=== PATIENT | female | born 1955 | race African-American/Black ===

== ENCOUNTER 2024-07-07 15:32 | Outpatient (REF) | payer MEDICAID, SELFPAY ==
[2024-07-07 18:03] LABS: Folate 18.8 ng/mL (> or = 4.0); Vitamin B12 506 pg/mL (200-900)
[2024-07-07 18:38] LABS: Anion Gap 7 (12-20); Blood Urea Nitrogen 18 mg/dL (9-16); Calcium 9.6 mg/dL (8.4-10.2); Carbon Dioxide 32 mmol/L (22-29); Chloride 107 mmol/L (96-108); Estimated Glomerular Filt Rate > 60; Glucose Random 103 mg/dL (60-115); Potassium 4.4 mmol/L (3.3-5.1); Sodium 142 mmol/L (135-145); TSH reflex Free T4 1.07 uIU/mL (0.32-4.0)
[2024-07-08 20:08] LABS: Homocysteine 8.2 umol/L (<10.4)
[2024-07-10 19:04] LABS: Methylmalonic Acid 290 nmol/L (69-390)
== END 2024-07-07 15:33 | disposition home or self-care (01) ==
LOC: HO.LAB 15:32
PROVIDERS: Visit Provider Psychiatry & Neurology Neurology
DX: G31.84 Mild cognitive impairment of uncertain or unknown etiology (principal)
CPT/HCPCS: 36415; 80048; 82607; 82746; 83090; 83921; 84443